=== PATIENT | male | born 1970 | race Caucasian/White ===

== ENCOUNTER 2019-04-06 09:08 | Day surgery (SDC) | payer OTHER ==
[2019-04-06] VITALS (11 sets, daily range): BP systolic 105–139; BP diastolic 50–82; PULSE 65–108; RESP 15–24; Ht 188 cm; Wt 84.4 kg
[~2019-04-06] VITALS: Ht 188 cm; Wt 84.4 kg
[2019-04-06] MEDS ORDERED: LACTATED RINGER'S 1,000 ML IV SCH (11:55)
[2019-04-06] MEDS ORDERED: ACETAMINOPHEN 325 MG TAB PO PRN (12:00)
[2019-04-06] MEDS ORDERED: ONDANSETRON 4 MG INJ IV PRN ×2 (12:00→13:00)
[2019-04-06] MEDS ORDERED: morphine 2 MG INJ IV PRN (12:00)
[2019-04-06] MEDS ORDERED: HYDROCODONE/APAP (5/325) TAB PO PRN (12:00)
[2019-04-06] MEDS ORDERED: CEFAZOLIN 1 GM INJ ONE (12:13)
[2019-04-06] MEDS ORDERED: LIDOCAINE 2% (SDV) 5 ML INJ ONE (12:13)
[2019-04-06] MEDS ORDERED: FENTAnyl 50 MCG/ML VIAL ONE (12:13)
[2019-04-06] MEDS ORDERED: MIDAZOLAM 1 MG/ML 2 ML INJ ONE (12:13)
[2019-04-06] MEDS ORDERED: PROPOFOL 20 ML ONE (12:13)
[2019-04-06] MEDS ORDERED: DEXAMETHASONE 4 MG/ML 5 ML INJ ONE (12:37)
[2019-04-06] MEDS ORDERED: ONDANSETRON 4 MG INJ ONE (12:37)
[2019-04-06] MEDS ORDERED: EPHEDrine 25 MG/5 ML SYG ONE (12:42)
[2019-04-06] MEDS ORDERED: PHENYLephrine (100 MCG/ML) 10ML SYG ONE (12:52)
[2019-04-06] MEDS ORDERED: MEPERIDINE 25 MG INJ IV PRN (13:00)
[2019-04-06] MEDS ORDERED: hydrALAzine 20 MG INJ IV PRN (13:00)
[2019-04-06] MEDS ORDERED: HYDROmorphONE 1 MG/5 ML IV SYRINGE IV PRN ×3 (13:00)
[2019-04-06] MEDS ORDERED: LABETALOL HCL 20MG INJ IV PRN (13:00)
[2019-04-06] MEDS ORDERED: OXYCODONE/ACETAMINOPHEN (5/325) TAB PO PRN ×2 (13:00)
[2019-04-06] MEDS ORDERED: BUPIVACAINE 0.25% (MPF) 30 ML INJ INJ ONE (13:35)
== END 2019-04-06 15:17 | disposition home or self-care (01) ==
LOC: SDS 09:08
PROVIDERS: ATTEND Surgery Plastic and Reconstructive Surgery
DX: C44.319 Basal cell carcinoma of skin of other parts of face (principal)
CPT/HCPCS: 14040; 88305; 88331; J0690; J1100; J2250; J2370; J2405; J3010; Z7512; Z7610